=== PATIENT | male | born 1970 | race Caucasian/White ===

== ENCOUNTER 2018-12-10 16:57 | Inpatient (IN) | payer MEDICAID ==
[~2018-12-10] VITALS: Ht 172.7 cm; Wt 81.9 kg
[2018-12-10 21:18] VITALS: BP 125/84
[2018-12-10 21:22] VITALS: BP 125/84
[2018-12-10] MEDS: ZOLPIDEM TARTRATE 10 MG TABLET PO PRN (21:35)
[2018-12-10] MEDS: LORazepam 2 MG TABLET PO PRN (21:35)
[2018-12-10] MEDS ORDERED: MAG HYDROX/AL HYDROX/SIMETH ES 30 ML SUSPENSION UDCUP PO PRN (22:00)
[2018-12-10] MEDS ORDERED: MAGNESIUM HYDROXIDE SUSPENSION 30 ML UDCUP PO PRN (22:00)
[2018-12-10] MEDS ORDERED: GuaiFENesin/D-METHORPHAN [SUGAR-FREE] 200-20MG/10 ML SYRUP UDCUP PO PRN (22:00)
[2018-12-10] MEDS ORDERED: NICOTINE 14 MG/24 HOUR PATCH TD PRN (22:00)
[2018-12-10] MEDS ORDERED: IBUPROFEN 400 MG TABLET PO PRN (22:00)
[2018-12-10] MEDS ORDERED: LOPERAMIDE HCL 2 MG CAPSULE PO PRN (22:00)
[2018-12-10] MEDS ORDERED: ACETAMINOPHEN 325 MG TABLET PO PRN (22:00)
[2018-12-10] MEDS ORDERED: PETROLATUM,WHITE 28 GM JELLY TP PRN (22:00)
[2018-12-10] MEDS ORDERED: CloNIDine HCL 0.1 MG TABLET PO PRN (22:00)
[2018-12-10] MEDS ORDERED: DOCUSATE SODIUM 100 MG CAPSULE PO PRN (22:00)
[2018-12-10] MEDS ORDERED: ONDANSETRON HCL 4 MG TABLET PO PRN (22:00)
[2018-12-10] MEDS ORDERED: ALBUTEROL SULFATE HFA 90 MCG/PUFF 8 GM INHALER IH PRN (22:00)
[2018-12-11 07:06] VITALS: BP 117/87
[2018-12-11 08:02] VITALS: BP 115/65
[2018-12-11 08:04] LABS: BASOPHILS % (AUTO) 0.4 % (0.0-2.0); HEMATOCRIT 43.9 % (41-53); HEMOGLOBIN 14.8 g/dL (13.5-17.5); LYMPHOCYTES # (AUTO) 2.1 K/uL (1.0-4.8); LYMPHOCYTES % (AUTO) 22.7 % (22.0-44.0); MEAN CORPUSCULAR HEMOGLOBIN 30.6 pg (26.0-34.0); MEAN CORPUSCULAR HGB CONC 33.6 G/dL (31.0-37.0); MEAN CORPUSCULAR VOLUME 91 fL (80-100); MONOCYTES % (AUTO) 10.4 % (2.0-9.0); NEUTROPHILS # (AUTO) 6.2 K/uL (1.8-7.7); NEUTROPHILS % (AUTO) 65.5 % (40.0-70.0); PLATELET COUNT (AUTO) 382 K/uL (150-450); RED BLOOD CELL COUNT(AUTO) 4.83 MIL/uL (4.50-5.90); RED CELL DISTRIBUTION WIDTH 12.9 % (11.5-14.5)
[2018-12-11 08:14] LABS: HEMOGLOBIN A1C 5.6 % (4.5-6.2)
[2018-12-11] MEDS: LORazepam 2 MG TABLET PO PRN ×3 (08:19→20:54)
[2018-12-11 08:40] LABS: ALANINE AMINOTRANSFERASE 17 U/L (12-78); ALBUMIN 3.7 g/dL (3.4-5.0); ALKALINE PHOSPHATASE 78 U/L (46-116); ANION GAP 11 mmol/L (8-16); ASPARTATE AMINOTRANSFERASE 14 U/L (15-37); BILIRUBIN,TOTAL 0.6 mg/dL (0.1-1.0); CALCIUM, TOTAL 9.8 mg/dL (8.8-10.5); CARBON DIOXIDE 25 mmol/L (22-29); CHLORIDE 103 mmol/L (98-107); CHOL/HDL RATIO 3.8 (4.2-7.3); CHOLESTEROL 162 mg/dL (131-200); CREATININE 0.82 mg/dL (0.60-1.30); FREE T4 (FREE THYROXINE) 1.16 ng/dL (0.76-1.46); GLOMERULAR FILTR. RATE CALC > 60 mL/min (>60); GLUCOSE,RANDOM 97 mg/dL (70-110); HDL CHOLESTEROL 43 mg/dL (40-60); LDL CHOL (CALC.) 96 mg/dL (0-130); POTASSIUM 4.7 mmol/L (3.5-5.1); SODIUM SERUM 139 mmol/L (136-145); THYROID STIMULATING HORMONE 1.93 uIU/mL (0.36-3.74); TOTAL PROTEIN, SERUM 7.2 g/dL (6.4-8.2); TRIGLYCERIDES 117 mg/dL (15-150); UREA NITROGEN, BLOOD 17 mg/dL (7-18)
[2018-12-11] MEDS ORDERED: SULFAMETHOX/TRIMETH DS 800-160 MG/TABLET PO SCH (09:00)
[2018-12-11] MEDS ORDERED: BACITRACIN 0.9 GM PACKET OINTMENT TP ONE (09:00)
[2018-12-11] MEDS: SULFAMETHOX/TRIMETH DS 800-160 MG/TABLET PO SCH ×2 (09:40→17:20)
[2018-12-11] MEDS: LEVOFLOXACIN 500 MG TABLET PO SCH (09:40)
[2018-12-11] MEDS ORDERED: PERMETHRIN 5% 60 GM CREAM TP ONE (10:00)
[2018-12-11] MEDS: FLUoxetine HCL 10 MG CAPSULE PO SCH (12:15)
[2018-12-11] MEDS: ARIPiprazole 10 MG TABLET PO SCH (13:14)
[2018-12-11 16:00] VITALS: BP 110/66
[2018-12-11] MEDS: PrednisoLONE ACETATE 1% 5 ML OPHTHALMIC SUSPENSION OD SCH (17:20)
[2018-12-11] MEDS: HALOPERIDOL 5 MG TABLET PO PRN (17:21)
[2018-12-11] MEDS: ZOLPIDEM TARTRATE 10 MG TABLET PO PRN (20:54)
[2018-12-12 06:11] VITALS: BP 132/68
[2018-12-12] MEDS: LORazepam 2 MG TABLET PO PRN ×3 (06:58→17:41)
[2018-12-12 08:17] VITALS: BP 135/89
[2018-12-12] MEDS: FLUoxetine HCL 10 MG CAPSULE PO SCH (09:49)
[2018-12-12] MEDS: SULFAMETHOX/TRIMETH DS 800-160 MG/TABLET PO SCH ×2 (09:49→16:27)
[2018-12-12] MEDS: LEVOFLOXACIN 500 MG TABLET PO SCH (09:49)
[2018-12-12] MEDS: ARIPiprazole 10 MG TABLET PO SCH (09:49)
[2018-12-12] MEDS: PrednisoLONE ACETATE 1% 5 ML OPHTHALMIC SUSPENSION OD SCH ×2 (09:50→16:26)
[2018-12-12 16:00] VITALS: BP 137/82
[2018-12-12] MEDS: HALOPERIDOL 5 MG TABLET PO PRN (16:27)
[2018-12-12] MEDS: ZOLPIDEM TARTRATE 10 MG TABLET PO PRN (20:44)
[2018-12-13 08:00] VITALS: BP 113/65
[2018-12-13] MEDS: LEVOFLOXACIN 500 MG TABLET PO SCH (08:57)
[2018-12-13] MEDS: ARIPiprazole 10 MG TABLET PO SCH (08:57)
[2018-12-13] MEDS: LORazepam 2 MG TABLET PO PRN (08:57)
[2018-12-13] MEDS: SULFAMETHOX/TRIMETH DS 800-160 MG/TABLET PO SCH ×2 (08:57→16:58)
[2018-12-13] MEDS: HALOPERIDOL 5 MG TABLET PO PRN (08:57)
[2018-12-13] MEDS: FLUoxetine HCL 10 MG CAPSULE PO SCH (08:58)
[2018-12-13] MEDS: PrednisoLONE ACETATE 1% 5 ML OPHTHALMIC SUSPENSION OD SCH ×2 (08:59→17:41)
[2018-12-13 16:12] VITALS: BP 138/70
[2018-12-13] MEDS ORDERED: ARIP10TA8 PO (16:31)
[2018-12-13] MEDS ORDERED: PROZ10 PO (16:31)
[2018-12-13] MEDS ORDERED: LEVO500T2 PO (17:10)
[2018-12-13] MEDS ORDERED: SULF1TAB42 PO (17:11)
== END 2018-12-13 18:15 | disposition home or self-care (01) | DRG 753 ==
LOC: B3A 20:34
PROVIDERS: ADMIT Psychiatry & Neurology Child & Adolescent Psychiatry
DX: F31.4 Bipolar disorder, current episode depressed, severe, without psychotic features (principal); R45.851 Suicidal ideations; F10.10 Alcohol abuse, uncomplicated; F12.10 Cannabis abuse, uncomplicated; L03.019 Cellulitis of unspecified finger; Z91.5 Personal history of self-harm; Z79.899 Other long term (current) drug therapy; Z71.6 Tobacco abuse counseling; Z71.51 Drug abuse counseling and surveillance of drug abuser; Z94.7 Corneal transplant status; Z88.0 Allergy status to penicillin; Z71.41 Alcohol abuse counseling and surveillance of alcoholic
CPT/HCPCS: 83036; 84439; 84443; 87081